=== PATIENT | male | born 1950 | race Caucasian/White ===

== ENCOUNTER 2019-12-30 05:56 | Day surgery (SDC) | payer MEDICARE, OTHER ==
[~2019-12-30 05:56] MED LIST: Dextrose 5%-0.45% NaCl 1,000 ML IV SCH; Sodium Chloride 0.9% 10 ML Syringe FLUSH PRN
[2019-12-30] MEDS ORDERED: fentaNYL 100 MCG/2 ML SDV IV ONE ×3 (05:57→07:20)
[2019-12-30] MEDS ORDERED: Midazolam 1 MG/ML 2 ML SDV IV ONE ×6 (05:57→07:34)
[2019-12-30] MEDS ORDERED: fentaNYL 100 MCG/2 ML SDV ONE (06:18)
[2019-12-30] MEDS ORDERED: Midazolam 1 MG/ML 2 ML SDV ONE (06:18)
--- NOTE | 2019-12-30 10:17 | OR ---
DATE: 12/30/2019 PROCEDURE: Total colonoscopy and multiple cold snare polypectomies. INSTRUMENT USED: [id number] Olympus video colonoscope. PREMEDICATIONS: Fentanyl 100 mcg intravenous, Versed 3 mg intravenous. The procedure was done under pulse oximetry, BP recording, and school lunch monitor. INDICATION: The patient with previous colonic villotubular adenoma. Surveillance colonoscopic examination is done for detection of any polypoid lesions and removal, endoscopic hemostasis therapy if needed. DESCRIPTION OF PROCEDURE: Initial rectal exam was unremarkable. Rigid anoscopy showed small internal hemorrhoids without bleeding. The colonoscope was passed with ease up to the ileocecal area. Photographs were taken of the normal- appearing cecum identified by landmarks of appendiceal orifice and double-bulged ileocecal folds. No bleeding was noted from any of the visualized areas at the commencement of the examination. The bowel preparation was found to be adequate. [place] scale 2 in all regions, total score 6. In the distal transverse colon, 5 mm sized benign-appearing polyp was noted, photograph was taken, cold snare polypectomy was done, the tissue was retrieved and sent for histopathology. In the proximal transverse colon, another benign-appearing polyp, diminutive in nature noted, cold snare polypectomy was done, the tissue was retrieved and sent for histopathology. No stricture. No vascular ectasia. No large isolated ulcerations seen. No evidence of diffuse inflammatory bowel disease in the form of friability, contact bleeding, or ulcerations. No evidence of diffuse inflammatory bowel disease in the form of friability, contact bleeding, or ulcerations. Probing the proximal sides of folds and flexures using adequate distention and clearing of the stool material, withdrawal of the scope was made, cecum to rectum time over 6 minutes. No bleeding was noted from any of the visualized areas at the completion of examination. IMPRESSION: 1. Internal hemorrhoids. 2. Multiple colonic polyps. The patient tolerated the procedure well. [facility] /[id number]
[2019-12-30 11:57] VITALS: PULSE 52
[2019-12-30 11:58] VITALS: BP 121/63
== END 2019-12-30 09:48 | disposition home or self-care (01) ==
LOC: DL.ENDO 05:56
PROVIDERS: ATTEND Internal Medicine Gastroenterology
DX: Z12.11 Encounter for screening for malignant neoplasm of colon (principal); D12.3 Benign neoplasm of transverse colon; K64.8 Other hemorrhoids; E66.09 Other obesity due to excess calories; E78.00 Pure hypercholesterolemia, unspecified; K21.9 Gastro-esophageal reflux disease without esophagitis; F41.1 Generalized anxiety disorder; F32.9 Major depressive disorder, single episode, unspecified; Z98.890 Other specified postprocedural states; Z68.31 Body mass index [BMI] 31.0-31.9, adult
CPT/HCPCS: 45385; 88305; J2250; J3010; J7042

== ENCOUNTER 2020-11-01 17:51 | Emergency (ER) | payer MEDICARE, OTHER ==
[2020-11-01] MEDS ORDERED: Benzonatate 100 MG Cap PO ONE (17:52)
[2020-11-01] MEDS ORDERED: Azithromycin 250 MG Tab PO ONE (17:52)
[2020-11-01 19:15] VITALS: BP 137/75; PULSE 67
--- NOTE | 2020-11-01 20:10 | CR ---
PROCEDURE INFORMATION: Exam: XR Chest Exam date and time: 11/01/2020 7:41 PM Age: 70 years old Clinical indication: Cough and fever; Additional info: Cough fever 102.5 covid negative TECHNIQUE: Imaging protocol: XR of the chest. Views: 1 view. COMPARISON: No relevant prior studies available. FINDINGS: Lungs: Unremarkable. No consolidation. Pleural spaces: Unremarkable. No pleural effusion. No pneumothorax. Heart/Mediastinum: Unremarkable. No cardiomegaly. Bones/joints: Unremarkable. IMPRESSION: No acute findings.
[2020-11-01] MEDS ORDERED: Azithromycin 250 MG Tab ONE (20:21)
[2020-11-01] MEDS ORDERED: Benzonatate 100 MG Cap ONE (20:22)
[2020-11-01] MEDS ORDERED: Albuterol 6.7 GM Inhaler INH ONE (20:22)
[2020-11-01 20:23] LABS: ANION GAP 12.8 mEq/L (7-13); CHLORIDE,CL 103 mmol/L (98-107); SODIUM,NA 139 mmol/L (136-145)
--- NOTE | 2020-11-01 20:31 | EDM.PDOC ---
ED HPI GENERAL MEDICAL PROBLEM - General Chief Complaint: ENT Problem Stated Complaint: ARIELLA SENT HIM Time Seen by Provider: 11/01/20 19:05 Source of Information: Reports: Patient History Limitations: Reports: No Limitations - History of Present Illness INITIAL COMMENTS - FREE TEXT/NARRATIVE: sore throat cough congestion x 2 days, fever up to 102.5, taking tylenol. [place] wheezing today, used old inhaler. Grand kids home over weekend and 5 year old had RSV. States contacted clinic today and told to come to ED ofr COVID testing. - Related Data Allergies Allergy/AdvReac Type Severity Reaction Status Date / Time No Known Allergies Allergy Verified 12/29/19 13:38 Home Meds: Home Meds Loratadine [Alavert] 10 mg PO DAILY 09/16/14 [History] Omeprazole [Prilosec] 20 mg PO DAILY 09/16/14 [History] Sertraline HCl 50 mg PO DAILY 09/16/14 [History] Temazepam [Restoril] 15 mg PO DAILY 09/16/14 [History] Albuterol [Ventolin HFA] 2 puff INH Q6H PRN 12/28/19 [History] Multivitamin [Multivitamins] 1 tab PO DAILY 12/28/19 [History] Ubidecarenone [Coenzyme Q10] 100 mg PO DAILY 12/28/19 [History] atorvaSTATin [Lipitor] 10 mg PO BEDTIME 12/28/19 [History] Past Medical History HEENT History: Reports: Allergic Rhinitis, Cataract, Hard of Hearing Cardiovascular History: Reports: High Cholesterol Respiratory History: Reports: None Gastrointestinal History: Reports: GERD Genitourinary History: Reports: None Other Musculoskeletal History: s/p R) ft trauma Neurological History: Reports: Headaches, Chronic Psychiatric History: Reports: Anxiety, Depression Endocrine/Metabolic History: Reports: None Hematologic History: Reports: Anemia Immunologic History: Reports: None Oncologic (Cancer) History: Reports: None Dermatologic History: Reports: None - Infectious Disease History Infectious Disease History: Reports: Chicken Pox - Past Surgical History Head Surgeries/Procedures: Reports: None HEENT Surgical History: Reports: Naso-Sinus Surgery, Tonsillectomy Other HEENT Surgeries/Procedures: nasal septum surg. Cardiovascular Surgical History: Reports: None Respiratory Surgical History: Reports: None GI Surgical History: Reports: Colonoscopy, EGD Other GI Surgeries/Procedures: s/p colonic villotubular adenoma Neurological Surgical History: Reports: None Musculoskeletal Surgical History: Reports: None Social & Family History - Family History Family Medical History: No Pertinent Family History - Tobacco Use Tobacco Use Status *Q: Never Tobacco User - Caffeine Use Caffeine Use: Reports: None Caffeine Use Comment: 1-2 cans daily - Recreational Drug Use Recreational Drug Use: No ED ROS ENT - Review of Systems Review Of Systems: Comprehensive ROS is negative, except as noted in HPI. ED EXAM, ENT - Physical Exam Exam: See Below Exam Limited By: No Limitations General Appearance: Alert, Mild Distress Eye Exam: Bilateral Eye: Conjunctival Injection, EOMI Ears: Normal External Exam, Normal Canal Nose: Normal Inspection, Injected Turbinates Mouth/Throat: Pharyngeal Erythema. No: Tonsillar Exudates Head: Atraumatic, Normocephalic Neck: Normal Inspection Respiratory/Chest: No Respiratory Distress, Decreased Breath Sounds. No: Rales, Rhonchi, Wheezing Cardiovascular: Normal Peripheral Pulses GI/Abdominal: Normal Bowel Sounds Back: Full Range of Motion Extremities: Normal Inspection, Normal Range of Motion Neurological: Alert, Oriented, Normal Cognition, No Motor/Sensory Deficits Psychiatric: Normal Affect Skin: Warm (face flushed) Course - Vital Signs Last Recorded V/S: Last Vital Signs Temp 97.9 F 11/01/20 19:14 Pulse 67 11/01/20 19:14 Resp 16 11/01/20 19:14 BP 137/75 11/01/20 19:14 Pulse Ox 95 11/01/20 19:14 - Orders/Labs/Meds Labs: Laboratory Tests 11/01/20 11/01/20 11/01/20 Range/Units 17:55 20:00 20:00 WBC 8.1 (5.0-10.0) 10^3/uL RBC 4.86 (4.6-6.2) 10^6/uL Hgb 13.8 L (14.0-18.0) g/dL Hct 41.6 (40.0-54.0) % MCV 85.6 (80-100) fL MCH 28.4 (27.0-34.0) pg MCHC 33.2 (33.0-35.0) g/dL Plt Count 177 (150-450) 10^3/uL Neut % (Auto) 76.0 H (42.2-75.2) % Lymph % (Auto) 10.1 L (20.5-50.1) % [place] % (Auto) 10.5 H (2-8) % Eos % (Auto) 3.2 H (1.0-3.0) % Baso % (Auto) 0.2 (0.0-1.0) % Sodium 139 (136-145) mmol/L Potassium 3.8 (3.5-5.1) mmol/L Chloride 103 (98-107) mmol/L Carbon Dioxide 27 (21-32) mmol/L Anion Gap 12.8 (7-13) mEq/L BUN 13 (7-18) mg/dL Creatinine 0.99 (0.70-1.30) mg/dL Est Cr Clr Drug Dosing 82.98 mL/min Estimated GFR (MDRD) > 60 BUN/Creatinine Ratio 13.1 (No establ ref range) Glucose 129 H (70-99) mg/dL Lactic Acid (0.4-2.0) mmol/L Calcium 8.5 (8.5-10.1) mg/dL Total Bilirubin 0.4 (0.2-1.0) mg/dL AST 28 (15-37) U/L ALT 37 (16-63) U/L Alkaline Phosphatase 81 (46-116) U/L Total Protein 7.3 (6.4-8.2) g/dL Albumin 3.6 (3.4-5.0) g/dL Globulin 3.7 Albumin/Globulin Ratio 1.0 SARS-CoV-2 RNA ([facility]) Negative (NEGATIVE) 11/01/20 Range/Units 20:00 WBC (5.0-10.0) 10^3/uL RBC (4.6-6.2) 10^6/uL Hgb (14.0-18.0) g/dL Hct (40.0-54.0) % MCV (80-100) fL MCH (27.0-34.0) pg MCHC (33.0-35.0) g/dL Plt Count (150-450) 10^3/uL Neut % (Auto) (42.2-75.2) % Lymph % (Auto) (20.5-50.1) % [place] % (Auto) (2-8) % Eos % (Auto) (1.0-3.0) % Baso % (Auto) (0.0-1.0) % Sodium (136-145) mmol/L Potassium (3.5-5.1) mmol/L Chloride (98-107) mmol/L Carbon Dioxide (21-32) mmol/L Anion Gap (7-13) mEq/L BUN (7-18) mg/dL Creatinine (0.70-1.30) mg/dL Est Cr Clr Drug Dosing mL/min Estimated GFR (MDRD) BUN/Creatinine Ratio (No establ ref range) Glucose (70-99) mg/dL Lactic Acid 2.5 H* (0.4-2.0) mmol/L Calcium (8.5-10.1) mg/dL Total Bilirubin (0.2-1.0) mg/dL AST (15-37) U/L ALT (16-63) U/L Alkaline Phosphatase (46-116) U/L Total Protein (6.4-8.2) g/dL Albumin (3.4-5.0) g/dL Globulin Albumin/Globulin Ratio SARS-CoV-2 RNA ([facility]) (NEGATIVE) Meds: Medications Discontinued Medications Generic Name Dose Route Start Last Admin Trade Name Freq PRN Reason Stop Dose Admin Albuterol Confirm 11/01/20 20:22 11/01/20 20:28 Albuterol 6.7 Gm Inhaler Administered 11/01/20 20:23 Not Given Dose 6.7 gm INH .STK-MED ONE Azithromycin Confirm 11/01/20 20:21 11/01/20 20:29 Azithromycin 250 Mg Tab Administered 11/01/20 20:22 Not Given Dose 500 mg .ROUTE .STK-MED ONE Azithromycin 250 mg 11/01/20 17:52 Azithromycin 250 Mg Tab PO 11/01/20 17:53 .STK-MED ONE Benzonatate Confirm 11/01/20 20:22 11/01/20 20:28 Benzonatate 100 Mg Cap Administered 11/01/20 20:23 Not Given Dose 400 mg .ROUTE .STK-MED ONE Benzonatate 100 mg 11/01/20 17:52 Benzonatate 100 Mg Cap PO 11/01/20 17:53 .STK-MED ONE Departure - Departure Time of Disposition: 20:31 Disposition: Home, Self-Care 01 Condition: Good Clinical Impression: Bronchitis URI (upper respiratory infection) Qualifiers: URI type: unspecified URI Qualified Code(s): J06.9 - Acute upper respiratory infection, unspecified - Discharge Information *PRESCRIPTION DRUG MONITORING PROGRAM REVIEWED*: No *COPY OF PRESCRIPTION DRUG MONITORING REPORT IN PATIENT JA: No Instructions: Upper Respiratory Infection, Adult, [id number] Forms: ED Department Discharge Additional Instructions: tylenol 500mg every 4 hours as needed for fever chills tessalon 200mg every 8 hours as needed for cough azithromycin 500mg tonight then 250mg daily for 4 days albuterol inhaler 2 puffs every 4 hours as needed for sheezing follow up if symptoms worsening, difficulty breathing humidifier
== END 2020-11-01 20:40 | disposition home or self-care (01) ==
LOC: DL.ED 17:51
DX: J40 Bronchitis, not specified as acute or chronic (principal); J06.9 Acute upper respiratory infection, unspecified; E78.00 Pure hypercholesterolemia, unspecified; K21.9 Gastro-esophageal reflux disease without esophagitis; Z79.899 Other long term (current) drug therapy; Z20.822 Contact with and (suspected) exposure to COVID-19
CPT/HCPCS: 36415; 71045; 80053; 83605; 85025; 87040; 87081; 87430; 87804; 99283; A9270; U0002

== ENCOUNTER 2023-09-08 17:29 | Inpatient (IN) | payer MEDICARE, OTHER ==
[2023-09-08] MEDS ORDERED: Magnesium Hydroxide 400 MG/5 ML Susp 30 ML Cup PO PRN (17:57)
[2023-09-08] MEDS ORDERED: Albuterol/Ipratropium 3.0-0.5 MG/3 ML Neb Soln NEB PRN (17:57)
[2023-09-08] MEDS ORDERED: Naloxone 2 MG/2 ML Syringe IVPUSH PRN (17:57)
[2023-09-08] MEDS ORDERED: Polyethylene Glycol 3350 Powder 17 GM Packet PO PRN (17:57)
[2023-09-08] MEDS ORDERED: Sennosides/Docusate Sodium 50-8.6 MG Tab PO PRN (17:57)
[2023-09-08] MEDS ORDERED: Sodium Chloride 0.9% 10 ML Syringe FLUSH PRN (17:57)
[2023-09-08] MEDS ORDERED: Ondansetron 4 MG/2 ML SDV IVPUSH PRN (17:57)
[2023-09-08] MEDS ORDERED: HYDROmorphone 0.5 MG/0.5 ML Syringe IVPUSH PRN (17:57)
[2023-09-08] MEDS ORDERED: Acetaminophen/oxyCODONE 325-5 MG Tab PO PRN (17:57)
[2023-09-08] MEDS ORDERED: Promethazine 25 MG/ML SDV IM PRN (17:57)
[2023-09-08] MEDS ORDERED: Acetaminophen 325 MG Tab PO PRN (17:57)
[2023-09-08] MEDS ORDERED: Metoprolol Tartrate 5 MG/5 ML SDV IVPUSH PRN (18:02)
[2023-09-08] MEDS ORDERED: hydrALAZINE 20 MG/ML SDV IVPUSH PRN (18:02)
[2023-09-08] MEDS: Heparin Sodium 5,000 Units/ML Vial IVPUSH ONE (18:34)
[2023-09-08] MEDS: Heparin Sodium/0.45% NaCl 25,000 UNITS/500 ML BAG IV SCH ×2 (18:35)
[2023-09-08] MEDS ORDERED: Albuterol 6.7 GM Inhaler INH PRN (18:48)
[2023-09-08] MEDS ORDERED: Cyclobenzaprine 10 MG Tab PO PRN (18:48)
[2023-09-08] MEDS: Sodium Chloride 0.9% 10 ML Syringe FLUSH SCH (21:28)
[2023-09-08] MEDS: Sertraline 50 MG Tab PO SCH (21:34)
[2023-09-08] MEDS: traMADol 50 MG Tab PO PRN (21:34)
[2023-09-08] MEDS: Temazepam 15 MG Cap PO PRN (21:34)
[2023-09-08] MEDS: atorvaSTATin 20 MG Tab PO SCH (21:35)
[2023-09-09 05:51] LABS: BASOPHILS PERCENT AUTO 0.3 % (0.0-1.0); EOSINOPHILS PERCENT AUTO 3.6 % (1.0-3.0); HEMATOCRIT 37.9 % (40.0-54.0); HEMOGLOBIN 12.1 g/dL (14.0-18.0); LYMPHOCYTES PERCENT AUTO 37.4 % (20.5-50.1); MEAN CORPUSCULAR HEMOGLOBIN 27.3 pg (27.0-34.0); MEAN CORPUSCULAR HGB CONC 31.9 g/dL (33.0-35.0); MEAN CORPUSCULAR VOLUME 85.4 fL (80-100); MONOCYTES PERCENT AUTO 8.7 % (2-8); PLATELET COUNT,PLT 193 10^3/uL (150-450); RED BLOOD CELL COUNT 4.44 10^6/uL (4.6-6.2); WHITE BLOOD CELL COUNT,WBC 6.4 10^3/uL (5.0-10.0)
[2023-09-09 06:09] LABS: ALBUMIN 3.3 g/dL (3.4-5.0); ANION GAP 10.1 mEq/L (7-13); BILIRUBIN TOTAL 0.5 mg/dL (0.2-1.0); BUN/CREATININE RATIO 15.8 (No establ ref range); CALCIUM 8.7 mg/dL (8.5-10.1); CREATININE 0.95 mg/dL (0.70-1.30); EST CRCL DRUG DOSING (CG) 82.77 mL/min; MAGNESIUM 2.1 mg/dL (1.8-2.4); POTASSIUM,K 4.1 mmol/L (3.5-5.1); PROTEIN TOTAL,TP 6.2 g/dL (6.4-8.2)
[2023-09-09 06:30] LABS: A/G RATIO 1.14
[2023-09-09] MEDS: Omeprazole 20 MG Cap.CR PO SCH (07:31)
[2023-09-09] MEDS: Melatonin 3 MG Tab PO PRN (20:02)
[2023-09-10 06:20] LABS: BASOPHILS PERCENT AUTO 0.4 % (0.0-1.0); HEMATOCRIT 35.5 % (40.0-54.0); HEMOGLOBIN 11.6 g/dL (14.0-18.0); LYMPHOCYTES PERCENT AUTO 32.6 % (20.5-50.1); MEAN CORPUSCULAR HEMOGLOBIN 27.8 pg (27.0-34.0); MEAN CORPUSCULAR HGB CONC 32.7 g/dL (33.0-35.0); MEAN CORPUSCULAR VOLUME 84.9 fL (80-100); MONOCYTES PERCENT AUTO 8.9 % (2-8); NEUTROPHILS PERCENT AUTO 54.1 % (42.2-75.2); PLATELET COUNT,PLT 184 10^3/uL (150-450); RED BLOOD CELL COUNT 4.18 10^6/uL (4.6-6.2); WHITE BLOOD CELL COUNT,WBC 5.7 10^3/uL (5.0-10.0)
[2023-09-10 06:51] LABS: ALBUMIN 3.1 g/dL (3.4-5.0); ANION GAP 12.2 mEq/L (7-13); BILIRUBIN TOTAL 0.3 mg/dL (0.2-1.0); BUN/CREATININE RATIO 17.7 (No establ ref range); CALCIUM 8.5 mg/dL (8.5-10.1); CREATININE 0.96 mg/dL (0.70-1.30); EST CRCL DRUG DOSING (CG) 81.91 mL/min; MAGNESIUM 1.9 mg/dL (1.8-2.4); POTASSIUM,K 4.2 mmol/L (3.5-5.1); PROTEIN TOTAL,TP 6.1 g/dL (6.4-8.2)
[2023-09-10 06:54] LABS: A/G RATIO 1.03
[2023-09-10 08:07] VITALS: BP 138/81; PULSE 64
[2023-09-10] MEDS: Apixaban 5 MG Tab PO SCH (09:21)
== END 2023-09-10 11:14 | disposition home or self-care (01) | DRG 301 ==
LOC: DL.MS 17:42 → UNDOADMIN 17:42 → DL.MS 17:57
PROVIDERS: ADMIT Internal Medicine; ATTEND Internal Medicine
DX: I82.402 Acute embolism and thrombosis of unspecified deep veins of left lower extremity (principal); G89.29 Other chronic pain; K21.9 Gastro-esophageal reflux disease without esophagitis; F41.9 Anxiety disorder, unspecified; F32.A Depression, unspecified; M54.42 Lumbago with sciatica, left side; H91.90 Unspecified hearing loss, unspecified ear; E78.00 Pure hypercholesterolemia, unspecified; H54.7 Unspecified visual loss; Z79.51 Long term (current) use of inhaled steroids; Z79.899 Other long term (current) drug therapy; Z98.890 Other specified postprocedural states; Z90.89 Acquired absence of other organs
CPT/HCPCS: 36415; 80053; 83735; 85025; 85379; 85730; A9270-GY; J1644; J3490